=== PATIENT | male | born 1955 | race Caucasian/White ===

== ENCOUNTER → 2016-02-09 | Outpatient (REF) ==
--- NOTE | 2016-02-09 21:38 | REP ---
Clinical: Pain and disability. Technique: AP, lateral, coned-down views. Findings: Subtle chronic levoconvex scoliosis appreciated along with marginal osteophytes, endplate sclerosis, disc space narrowing and hypertrophic facet changes. No acute fracture / compression injury or subluxation. Atherosclerotic changes of the aorta noted. Impression: Moderate multilevel degenerative changes primarily involving the L5-S1 and L4-L5 levels. Signed by Harjinder Ball MD 02/09/2016 09:30 P
== END ==
LOC: M SMT 12:52
PROVIDERS: ATTEND Internal Medicine
DX: Z02.71 Encounter for disability determination (principal); M54.5 Low back pain